=== PATIENT | male | born 2000 | race Hispanic/Latino ===

== ENCOUNTER 2024-02-12 08:53 | Emergency (ER) | payer SELFPAY ==
[2024-02-12 12:47] LABS: #Basophils 0.07 10x3/uL (0.0-0.2); #Monocytes 1.52 10x3/uL (0.0-1.1); #Neutrophils 10.99 10x3/uL (1.5-8.4); %Basophils 0.5 % (0.0-2.0); %Lymphocytes 15.1 % (18.0-47.0); %Monocytes 10.2 % (0.0-10.0); %Neutrophils 73.9 % (40.0-75.0); Hematocrit 44.2 % (38.8-50.0); Hemoglobin 15.5 g/dL (13.5-17.5); Mean Corpuscular HGB CONC 35.1 g/dL (32.0-36.0); Mean Corpuscular Hemoglobin 29.3 pg (27.0-33.0); Mean Corpuscular Volume 83.6 fL (81.2-95.1); Mean Platelet Volume 9.8 fL (7.4-10.4); Platelet Count 290 10x3/uL (150-450); RBC Distribution Width 12.8 % (11.5-14.5); Red Blood Cell (RBC) Count 5.29 10x6/uL (4.32-5.72); White Blood Cell (WBC) Count 14.9 10x3/uL (3.5-10.5)
[2024-02-12 13:03] LABS: ALT (SGPT) 37 U/L (8-55); AST (SGOT) 20 U/L (5-34); Albumin 4.9 g/dL (3.5-5.0); Alkaline Phosphatase 96 U/L (40-110); Anion Gap 17 mmol/L (10-20); BUN (Urea Nitrogen) 9 mg/dL (8.9-20.6); Bilirubin, Total 0.8 mg/dL (0.2-1.2); Calc. Creatinine Clearance 0 mL/min (70-130); Calcium 10.5 mg/dL (7.8-10.44); Carbon Dioxide 26 mmol/L (22-29); Chloride 101 mmol/L (98-107); Estimated GFR 126; Globulin 3.2 g/dL (2.4-3.5); Glucose 97 mg/dL (70-105); Potassium 3.7 mmol/L (3.5-5.1); Protein, Total 8.1 g/dL (6.0-8.3); Sodium 140 mmol/L (136-145)
== END 2024-02-12 14:30 | disposition home or self-care (01) ==
LOC: CSHERS 08:53
DX: R00.0 Tachycardia, unspecified (principal); E86.0 Dehydration
CPT/HCPCS: 36415; 71045; 80053; 85025; 85379; 93005